=== PATIENT | male | born 1965 | race Caucasian/White ===

== ENCOUNTER 2016-10-17 12:59 | Emergency (ER) | payer SELFPAY ==
--- NOTE | 2016-10-17 13:37 | Emergency Department Record ---
History of Present Illness - General Chief Complaint: Back Pain/Injury Stated Complaint: BACK PAIN Time Seen by Provider: 10/17/16 13:01 Source: Patient Mode of Arrival: Ambulatory Limitations: No limitations - History of Present Illness Initial Comments: The patient is here due to multiple complaints. He got up this AM and went out to smoke and then noticed some chest discomfort. It was like a chest heaviness in the retrosternal region that was nonradiating. He denied any GENARO, SOB, upper back pain or sweating during the pain. The pain only lasted a few minutes and then resolved. He then noticed his legs feeling numb. He then walked inside and sat down and felt his legs go weak and very numb so he could not move them. The patient at this point felt like his legs were paralyzed and he layed down for about an hour unable to move. He did have mild low back pain at that time. Due to not being able to walk the patient called 911 and EMS arrived. They gave him 100mcg of Fentanyl for pain and then brought the patient here. During the transport time the patient states his leg numbness and weakness resolve and now they are back to normal. He has no hx of similar issues and no hx of any CP with exertion. The patient has cardiac risk factors of heavy tobacco use and a family hx of CAD. MD Complaint: Back pain, Other Onset/Timin -: Hour(s) Similar Symptoms Previously: No Place: Home Radiation: None Severity: Moderate Consistency: Now resolved Improves With: None Worsens With: None Context: Unknown Associated Symptoms: Denies other symptoms Treatment Prior to Arrival Comment:: Fentanyl 100 mcg per EMS - Related Data Previous Rx's Medication Instructions Recorded Cyclobenzaprine HCl [Flexeril] 10 mg PO TID PRN #20 tablet 10/17/16 Naproxen [Naprosyn] 500 mg PO BID #14 tablet. 10/17/16 Allergies Allergy/AdvReac Type Severity Reaction Status Date / Time No Known Drug Allergies Allergy Verified 10/17/16 13:12 Travel Screening - Travel/Exposure Within Last 30 Days Have you traveled within the last 30 days?: No - Travel/Exposure Within Last Year Have you traveled outside the [place] in the last year?: No - Additonal Travel Details Have you been exposed to anyone with a communicable illness?: No - Travel Symptoms Symptom Screening: None Review of Systems Constitutional: Denies: Chills, Fever Eyes: Denies: Eye discharge ENT: Denies: Congestion Respiratory: Denies: Cough, Dyspnea Past Medical History - SOCIAL HISTORY Smoking Status: Current every day smoker Alcohol Use: Occasional Drug Use: None - RESPIRATORY Hx Respiratory Disorders: No - CARDIOVASCULAR Hx Cardio Disorders: No - NEURO Hx Neuro Disorders: No - GI Hx GI Disorders: No - Hx Genitourinary Disorders: No - ENDOCRINE Hx Endocrine Disorders: No - MUSCULOSKELETAL Hx Musculoskeletal Disorders: No - PSYCH Hx Psych Problems: No - HEMATOLOGY/ONCOLOGY Hx Hematology/Oncology Disorders: No Family Medical History Any Significant Family History?: Yes Hx Heart Disease: Father, Mother, Brother/Sister, Grandparents Hx HTN: Father, Mother, Brother/Sister, Grandparents Physical Exam - General General Appearance: Alert, Oriented x3, Cooperative, No acute distress - Head Head exam: Atraumatic, Normocephalic, Normal inspection - Eye Eye exam: Normal appearance, PERRL - Neck Neck exam: Normal inspection, Full ROM. negative: Tenderness - Respiratory Respiratory exam: Normal lung sounds bilaterally. negative: Respiratory distress - Cardiovascular Cardiovascular Exam: Regular rate, Normal rhythm, Normal heart sounds - GI/Abdominal GI/Abdominal exam: Soft, Normal bowel sounds. negative: Tenderness - Extremities Extremities exam: Normal inspection, Full ROM, Normal capillary refill, Other ( Radial and DP pulses are 2+ and equal bilaterally.). negative: Tenderness - Back Back exam: Reports: Normal inspection, Full ROM. Denies: Muscle spasm, Rash noted, Tenderness - Neurological Neurological exam: Alert, Normal gait, Oriented X3, Reflexes normal (Patellar and achilles reflexes are 2+ bilaterally and equal.), Other (Neg SLR bilaterally.). negative: Abnormal gait, Motor sensory deficit (The motor and sensory exams are 5/5 and equal bilaterally in all muscle groups.) - Psychiatric Psychiatric exam: negative: Anxious, Depressed - Skin Skin exam: negative: Petechiae, Rash, Urticaria Course Vital Signs 10/17/16 13:13 Temperature 97.7 F Pulse Rate 56 L Respiratory 20 Rate Blood Pressure 103/59 Pulse Ox 94 L - Reevaluation(s) Reevaluation #1: The patient is doing very well at this time. He denies any leg numbness, weakness, or any bowel or bladder incontinence or retention. He just got up and walked to the bathroom with no difficulty and gave us a urine specimen. He states he is having very mild back pain now but it is nothing like earlier. 10/17/16 15:19 Reevaluation #2: The patient is doing well. He has had no further pain or discomfort in his chest and very minimal back pain. Due to the confusing nature of his symptoms I did recommend hospital admission to evaluate his heart further and to investigate the leg weakness further. The patient is reluctant to follow my advice and is refusing admission. I explained to him the risks of leaving are that he is to go home and have a heart attack, stroke, become disabled and even . He also could have the return of the leg weakness and it may not resolve this time and he could be paralyzed. The patient understands and accepts the risks. He understands we cannot be held liable for not figuring out his issues due to the fact he is refusing admission. The patient has proper decision making capacity and understands our instructions. 10/17/16 15:48 Medical Decision Making - Data Complexity MDM Data: Labs Ordered and/or Reviewed, X-Ray Ordered and/or Reviewed, EKG Ordered and/or Reviewed - Lab Data Result diagrams: 10/17/16 13:47 10/17/16 13:47 - EKG Data -: EKG Interpreted by Me EKG: No Acute Changes (NSR at 55. Biphasic T changes V4-6.) - Radiology Data Radiology results: Report reviewed (CXR: Neg LS SPine: No acute changes, mild DJD.) Disposition Disposition: Discharge Clinical Impression: Leg weakness, bilateral Chest pain Qualifiers: Chest pain type: unspecified Qualified Code(s): R07.9 - Chest pain, unspecified Disposition: Against Medical Advice Condition: (1) Good Instructions: Low Back Strain (ED) Additional Instructions: Please use the Naprosyn and Flexeril as directed. Please see a PCP later this week for further evaluation. Return to the ER for ANY return of your symptoms or if you change your mind about being evaluated further. Prescriptions: Cyclobenzaprine HCl [Flexeril] 10 mg PO TID PRN #20 tablet PRN Reason: Pain Naproxen [Naprosyn] 500 mg PO BID #14 tablet.dr Forms: Patient Portal Access Time of Disposition: 15:56 Quality - Quality Measures Quality Measures: N/A - Blood Pressure Screening View Details: Yes Blood Pressure Classification: Normal BP Reading Systolic Measurement: 103 Diastolic Measurement: 59 Screening for High Blood Pressure: < Normal BP, F/U Not Required > [G8783] Normal BP Follow-up Interventions: No follow-up required
[2016-10-17 13:55] LABS: HEMATOCRIT 46.2 % (42.0-52.0); HEMOGLOBIN 16.6 gm/dl (14.0-18.0); MEAN CELL VOLUME 88.2 fl (81-97); MEAN CORPUSCULAR HEMOGLOBIN 31.7 pg (27-33); MEAN CORPUSCULAR HGB CONC 35.9 g/dl (32-36); MEAN PLATELET VOLUME 10.4 fl (7.4-10.4); PLATELET COUNT 166 K/uL (130-400); RED BLOOD COUNT 5.24 M/uL (4.40-5.70); RED CELL DISTRIBUTION WIDTH 13.4 % (11.5-14.5); WHITE BLOOD COUNT W/O DIFF 16.2 K/uL (4.2-12.2)
[2016-10-17 14:06] LABS: ANION GAP 11.5 (7-16); BLOOD UREA NITROGEN 18 mg/dL (9-20); CARBON DIOXIDE 24.5 mmol/L (22-30); CREATINE PHOSPHOKINASE 72 U/L (55-170); CREATININE 1.1 mg/dL (0.66-1.25); EST GLOMERULAR FILTRATION RATE > 60 ml/min; GLUCOSE,RANDOM 98 mg/dL (70-110)
[2016-10-17 14:08] LABS: INR 0.98; PROTHROMBIN TIME (PATIENT) 10.6 SECONDS (9.5-12.1)
[2016-10-17 14:18] LABS: CKMB 1.6 ug/L (0-6)
[2016-10-17 14:19] LABS: TROPONIN I < 0.012 ng/mL (0.00-0.034)
[2016-10-17 15:21] LABS: URINE APPEARANCE CLEAR; URINE BILIRUBIN NEGATIVE (NEGATIVE); URINE BLOOD TRACE-I (NEGATIVE); URINE COLOR YELLOW; URINE GLUCOSE (UA) NEGATIVE (NEGATIVE); URINE KETONE NEGATIVE (NEGATIVE); URINE LEUKOCYTE ESTERASE NEGATIVE (NEGATIVE); URINE NITRITE NEGATIVE (NEGATIVE); URINE PROTEIN TRACE (NEGATIVE); URINE UROBILINOGEN 0.2 E.U./dL (0.20 - 1.00)
[2016-10-17] MEDS ORDERED: KETOROLAC 30 MG/ML VIAL IVP ONE (15:21)
[2016-10-17 15:30] LABS: URINE BACTERIA FEW; URINE HYALINE CAST 0-2 /lpf; URINE MUCUS HEAVY; URINE SQUAMOUS EPITHELIAL CELL 0 - 2 /hpf; URINE WBC 0 - 2 (0-2/hpf)
--- NOTE | 2016-10-18 09:51 | RADIOLOGY REPORT ---
EXAM: CHEST, TWO VIEWS HISTORY: DIFFICULTY BREATHING. TECHNIQUE: Frontal and lateral views of the chest were obtained. Comparison: None. FINDINGS: The heart size is normal. The lungs are clear. No pneumothorax. IMPRESSION: NEGATIVE CHEST EXAMINATION. JOB NUMBER: [id number] MTDD
--- NOTE | 2016-10-18 09:53 | RADIOLOGY REPORT ---
EXAM: LUMBAR SPINE HISTORY: BACK PAIN. TECHNIQUE: Frontal and lateral views of the lumbar spine were obtained. Comparison: None. FINDINGS: There are five non-rib bearing lumbar type vertebral bodies. Height and alignment is preserved. Minor end plate degenerative changes with osteophytic spurring at the L4-L5 and L5-S1 levels. The sacroiliac joints are preserved. IMPRESSION: MINOR DEGENERATIVE CHANGE, ABOVE. JOB NUMBER: [id number] MTDD
== END 2016-10-17 16:17 | disposition left against medical advice (07) ==
LOC: ER 12:59
DX: R29.898 Other symptoms and signs involving the musculoskeletal system (principal); R07.9 Chest pain, unspecified; M54.5 Low back pain; R06.00 Dyspnea, unspecified; F17.210 Nicotine dependence, cigarettes, uncomplicated
CPT/HCPCS: 99284 ×2; 96374; 82550; 85730; 85610; 86140; 82553; 84484; 80048; 81001; 85027; 71020; 72100; 93005; 93010; J1885

== ENCOUNTER 2017-03-20 17:54 | Emergency (ER) | payer MEDICAID ==
[2017-03-20] MEDS ORDERED: ONDANSETRON HCL IV 4 MG/2 ML VIAL IVP ONE (18:10)
[2017-03-20] MEDS ORDERED: MORPHINE SULFATE 5 MG/ML PFS IM ONE (18:10)
[2017-03-20] MEDS ORDERED: 0.9 % SODIUM CHLORIDE 1,000 ML BAG IV ONE (18:13)
--- NOTE | 2017-03-20 18:18 | Emergency Department Record ---
History of Present Illness - General Chief complaint: Flank Pain Stated complaint: FLANK PAIN Time Seen by Provider: 03/20/17 18:05 Source: Patient Mode of Arrival: Ambulatory Limitations: No limitations - History of Present Illness Initial comments: The patient is here due to developing R lower back pain over the last 5 hours. The pain is an aching pain that is worse with certain movements and bending. He denies any CP, SOB, or GENARO, and also has had no AP or dysuria. The patient denies any pain radiating down the legs or any leg weakness or numbness. The patient states the pain is similar to the pain he had this last summer when he was diagnosed with a Type A thoracic dissection. He was then treated at [facility] and the [facility] and had an ascending aorta patch placed. MD Complaint: Other Onset/Timin -: Hour(s) Location: Right flank Radiation: Back, R flank Quality: Aching Consistency: Constant Improves with: None Worsens with: None Reports: Nausea/vomiting - Related Data Allergies Allergy/AdvReac Type Severity Reaction Status Date / Time No Known Drug Allergies Allergy Verified 03/20/17 17:58 Travel Screening - Travel/Exposure Within Last 30 Days Have you traveled within the last 30 days?: No Review of Systems Constitutional: Denies: Chills, Fever Eyes: Denies: Eye discharge ENT: Denies: Congestion Respiratory: Denies: Cough, Dyspnea Cardiovascular: Denies: Arrhythmia, Chest pain Endocrine: Denies: Fatigue Past Medical History - SOCIAL HISTORY Smoking Status: Current every day smoker Alcohol Use: None Drug Use: None - RESPIRATORY Hx Respiratory Disorders: No - CARDIOVASCULAR Hx Cardio Disorders: No Hx Palpitations: No Comment:: aortic disection repair - NEURO Hx Neuro Disorders: No - GI Hx GI Disorders: No - Hx Genitourinary Disorders: No - ENDOCRINE Hx Endocrine Disorders: No - MUSCULOSKELETAL Hx Musculoskeletal Disorders: No - PSYCH Hx Psych Problems: No - HEMATOLOGY/ONCOLOGY Hx Hematology/Oncology Disorders: No Family Medical History Any Significant Family History?: Yes Hx Heart Disease: Father, Mother, Brother/Sister, Grandparents Hx HTN: Father, Mother, Brother/Sister, Grandparents Physical Exam - General General Appearance: Alert, Oriented x3, Cooperative, No acute distress - Head Head exam: Atraumatic, Normocephalic, Normal inspection - Eye Eye exam: Normal appearance, PERRL - ENT Throat exam: Normal inspection. negative: Tonsillar erythema, Tonsillar exudate - Neck Neck exam: Normal inspection, Full ROM. negative: Tenderness - Respiratory Respiratory exam: Normal lung sounds bilaterally. negative: Respiratory distress - Cardiovascular Cardiovascular Exam: Regular rate, Normal rhythm, Normal heart sounds. negative : Diastolic murmur, Systolic murmur - GI/Abdominal GI/Abdominal exam: Soft, Normal bowel sounds, Other (fem pulses are 2+ and equal bilaterally.). negative: Distended, Rigid, Tenderness - Extremities Extremities exam: Normal inspection, Full ROM, Normal capillary refill. negative: Tenderness - Back Back exam: Reports: Normal inspection, Full ROM, Paraspinal tenderness (The pain is reproducible to palpation over the R lower paraspinal muscle area. ). Denies: Muscle spasm, Rash noted, Tenderness, Vertebral tenderness - Neurological Neurological exam: Alert, Normal gait, Oriented X3. negative: Abnormal gait, Altered, Motor sensory deficit Course Vital Signs 03/20/17 17:59 Temperature 98.2 F Pulse Rate 62 Respiratory 20 Rate Blood Pressure 167/119 Pulse Ox 96 - Reevaluation(s) Reevaluation #1: The patient is doing better at this time. He states his R lower back pain is much improved and does not want any more pain medicines. He is still very anxious so we will treat him with a mg of Ativan. The repeat BP is 160/106. 03/20/17 18:39 Reevaluation #2: The patient is doing well at this time and resting comfortably. He has just had a chest and abd CT on 02/21/17 at [facility] and does say he was not told of any problems on the CT at his subsequent appointment. 03/20/17 18:50 Reevaluation #3: The patient is doing better. His repeat BP is 164/103. The patient states his normal BP is 150/90 since the surgery. The patient's care will be turned over to Dr. Linn at 19:00 due to shift change. 03/20/17 18:55 03/20/17 18:56 Medical Decision Making - Data Complexity MDM Data: EKG Ordered and/or Reviewed - Lab Data Result diagrams: 03/20/17 18:17 03/20/17 18:17 - EKG Data -: EKG Interpreted by Me EKG: Abnormal EKG (Biphasic T changes V4-6. Poss prolonged QT by computer read.) Disposition Forms: Patient Portal Access Quality - Quality Measures Quality Measures: N/A - Blood Pressure Screening View Details: Yes Does Patient Have Any of the Following: No, Active Dx of HTN Blood Pressure Classification: Hypertensive Reading Systolic Measurement: 167 Diastolic Measurement: 119 Screening for High Blood Pressure: Patient Exclusion, Hx of HTN [G9744]
[2017-03-20 18:25] LABS: BASO % 0.1 % (0-6); EOS % 0.7 % (0-6); GRAN % 63.2 % (47-80); HEMATOCRIT 40.5 % (42.0-52.0); HEMOGLOBIN 14.5 gm/dl (14.0-18.0); LYMPH % 27.7 % (16-45); MEAN CELL VOLUME 87.7 fl (81-97); MEAN CORPUSCULAR HEMOGLOBIN 31.4 pg (27-33); MEAN CORPUSCULAR HGB CONC 35.8 g/dl (32-36); MONO % 8.3 % (0-9); PLATELET COUNT 168 K/uL (130-400); RED BLOOD COUNT 4.62 M/uL (4.40-5.70); RED CELL DISTRIBUTION WIDTH 13.9 % (11.5-14.5)
[2017-03-20 18:26] LABS: URINE APPEARANCE CLEAR; URINE BILIRUBIN NEGATIVE (NEGATIVE); URINE BLOOD NEGATIVE (NEGATIVE); URINE COLOR YELLOW; URINE GLUCOSE (UA) NEGATIVE (NEGATIVE); URINE KETONE NEGATIVE (NEGATIVE); URINE LEUKOCYTE ESTERASE NEGATIVE (NEGATIVE); URINE NITRITE NEGATIVE (NEGATIVE); URINE PROTEIN NEGATIVE (NEGATIVE); URINE UROBILINOGEN 0.2 E.U./dL (0.20 - 1.00)
[2017-03-20 18:35] LABS: BLOOD UREA NITROGEN 21 mg/dL (6-20); CREATININE 0.8 mg/dL (0.7-1.2); EST GLOMERULAR FILTRATION RATE > 60 mL/min
[2017-03-20 18:36] LABS: INR 1.05; PARTIAL THROMBOPLASTIN TIME 26.3 SECONDS (24.5-39.1); PROTHROMBIN TIME (PATIENT) 11.4 SECONDS (9.5-12.1)
[2017-03-20] MEDS ORDERED: LORAZEPAM 2 MG/ML VIAL IV ONE (18:37)
[2017-03-20 18:38] LABS: GLUCOSE,RANDOM 87 mg/dL (74-109)
[2017-03-20 18:41] LABS: CREATINE PHOSPHOKINASE 78 U/L (39-308)
[2017-03-20 18:43] LABS: CKMB 2.6 ng/mL (<6.73)
--- NOTE | 2017-03-20 19:03 | Emergency Department Record ---
History of Present Illness - General Chief Complaint: Flank Pain Stated Complaint: FLANK PAIN Time Seen by Provider: 03/20/17 18:05 Source: Patient Mode of Arrival: Ambulatory Limitations: No limitations - History of Present Illness -: Hour(s) - Related Data Previous Rx's Medication Instructions Recorded Diazepam [Valium] 5 mg PO Q8H #20 tab 03/20/17 Hydrocodone/Acetaminophen [[place] 1 each PO Q6H #20 tablet 03/20/17 5-325 Tablet] Lisinopril 40 mg PO DAILY #30 tab 03/20/17 Allergies Allergy/AdvReac Type Severity Reaction Status Date / Time No Known Drug Allergies Allergy Verified 03/20/17 17:58 Travel Screening - Travel/Exposure Within Last 30 Days Have you traveled within the last 30 days?: No Review of Systems Constitutional: Denies: Chills, Fever Eyes: Denies: Eye discharge ENT: Denies: Congestion Respiratory: Denies: Cough, Dyspnea Cardiovascular: Denies: Arrhythmia, Chest pain Endocrine: Denies: Fatigue Past Medical History - SOCIAL HISTORY Smoking Status: Current every day smoker Alcohol Use: None Drug Use: None - RESPIRATORY Hx Respiratory Disorders: No - CARDIOVASCULAR Hx Cardio Disorders: No Hx Palpitations: No Comment:: aortic disection repair - NEURO Hx Neuro Disorders: No - GI Hx GI Disorders: No - Hx Genitourinary Disorders: No - ENDOCRINE Hx Endocrine Disorders: No - MUSCULOSKELETAL Hx Musculoskeletal Disorders: No - PSYCH Hx Psych Problems: No - HEMATOLOGY/ONCOLOGY Hx Hematology/Oncology Disorders: No Family Medical History Any Significant Family History?: Yes Hx Heart Disease: Father, Mother, Brother/Sister, Grandparents Hx HTN: Father, Mother, Brother/Sister, Grandparents Physical Exam - General Limitations: No limitations Course Vital Signs 03/20/17 03/20/17 03/20/17 17:59 18:35 18:54 Temperature 98.2 F Pulse Rate 62 Pulse Rate [ 60 60 Developmental Therapist ] Respiratory 20 20 Rate Blood Pressure 167/119 Blood Pressure 161/106 164/103 [Right Arm] Pulse Ox 96 96 - Reevaluation(s) Reevaluation #1: The case was signed out by Dr Willett The patient is in CT scan at this time The labs were reviewed The patient will be seen on return from CT 03/20/17 19:01 03/20/17 19:36 No changes on the EKG today from November 22 2016. The most recent provided by Siddhartha. 03/20/17 19:[address] report was reviewed. The CT is grossly unchanged from the 02/22/17 CT scan. There is a dissection from the great vessels to the L external iliac unchanged from the report. The SMA is involved as it was on the prior and unchanged. The left kidney is hypoperfused and again unchanged. There are no acute changes on the CT scan from the 02.22.17 CT scan. 03/20/17 19:[address] Angulo the patient's PCP regarding the ED visit, symptoms, CT and BP. He recommends increasing his Lisinopril to 40mg daily, come to the office for a nurse BP check, and see him next available office visit. Medical Decision Making - Lab Data Result diagrams: 03/20/17 18:17 03/20/17 18:17 Lab Results 03/20/17 03/20/17 03/20/17 Range/Units 18:17 18:17 18:17 WBC 7.0 (4.2-12.2) K/uL RBC 4.62 (4.40-5.70) M/uL Hgb 14.5 (14.0-18.0) gm/dl Hct 40.5 L (42.0-52.0) % MCV 87.7 (81-97) fl MCH 31.4 (27-33) pg MCHC 35.8 (32-36) g/dl RDW 13.9 (11.5-14.5) % Plt Count 168 (130-400) K/uL MPV 10.0 (7.4-10.4) fl Gran % 63.2 (47-80) % Lymphocytes % 27.7 (16-45) % Monocytes % 8.3 (0-9) % Eosinophils % 0.7 (0-6) % Basophils % 0.1 (0-6) % PT 11.4 (9.5-12.1) SECONDS INR 1.05 APTT 26.30 (24.5-39.1) SECONDS D-Dimer (0-0.59) mg/L FEU Sodium (136-145) mmol/L Potassium (3.4-4.5) mmol/L Chloride (98-107) mmol/L Carbon Dioxide (22-29) mmol/L Anion Gap (7-16) BUN (6-20) mg/dL Creatinine (0.7-1.2) mg/dL Estimated GFR mL/min Random Glucose (74-109) mg/dL Calcium (8.6-10.0) mg/dL Creatine Kinase (39-308) U/L CK-MB (CK-2) (<6.73) ng/mL Troponin T (0-0.010) ng/mL Urine Color Yellow Urine Appearance Clear Urine pH 6.5 (5.0-8.0) Ur Specific [place] 1.025 (1.002-1.030) Urine Protein Negative (NEGATIVE) Urine Glucose (UA) Negative (NEGATIVE) Urine Ketones Negative (NEGATIVE) Urine Blood Negative (NEGATIVE) Urine Nitrite Negative (NEGATIVE) Urine Bilirubin Negative (NEGATIVE) Urine Urobilinogen 0.2 (0.20 - 1.00) E.U./dL Ur Leukocyte Esterase Negative (NEGATIVE) 03/20/17 03/20/17 Range/Units 18:17 18:17 WBC (4.2-12.2) K/uL RBC (4.40-5.70) M/uL Hgb (14.0-18.0) gm/dl Hct (42.0-52.0) % MCV (81-97) fl MCH (27-33) pg MCHC (32-36) g/dl RDW (11.5-14.5) % Plt Count (130-400) K/uL MPV (7.4-10.4) fl Gran % (47-80) % Lymphocytes % (16-45) % Monocytes % (0-9) % Eosinophils % (0-6) % Basophils % (0-6) % PT (9.5-12.1) SECONDS INR APTT (24.5-39.1) SECONDS D-Dimer 1.25 H (0-0.59) mg/L FEU Sodium 138 (136-145) mmol/L Potassium 4.0 (3.4-4.5) mmol/L Chloride 101 (98-107) mmol/L Carbon Dioxide 25.0 (22-29) mmol/L Anion Gap 12.0 (7-16) BUN 21 H (6-20) mg/dL Creatinine 0.8 (0.7-1.2) mg/dL Estimated GFR > 60 mL/min Random Glucose 87 (74-109) mg/dL Calcium 9.2 (8.6-10.0) mg/dL Creatine Kinase 78 (39-308) U/L CK-MB (CK-2) 2.6 (<6.73) ng/mL Troponin T < 0.010 (0-0.010) ng/mL Urine Color Urine Appearance Urine pH (5.0-8.0) Ur Specific [place] (1.002-1.030) Urine Protein (NEGATIVE) Urine Glucose (UA) (NEGATIVE) Urine Ketones (NEGATIVE) Urine Blood (NEGATIVE) Urine Nitrite (NEGATIVE) Urine Bilirubin (NEGATIVE) Urine Urobilinogen (0.20 - 1.00) E.U./dL Ur Leukocyte Esterase (NEGATIVE) Disposition Disposition: Discharge Clinical Impression: Flank pain Disposition: Home, Self-Care Condition: (1) Good Instructions: Flank Pain (ED) Additional Instructions: Increase your Lisinopril to 40mg daily up from 20mg daily Return if you have any uncontrolled pain, return of pain or any new concerns Return to the [facility] clinic this week for a blood pressure check and to schedule your recheck with Dr Coronel Prescriptions: Diazepam [Valium] 5 mg PO Q8H #20 tab Hydrocodone/Acetaminophen [[place] 5-325 Tablet] 1 each PO Q6H #20 tablet Lisinopril 40 mg PO DAILY #30 tab Forms: Patient Portal Access Time of Disposition: 19:54 Quality - Quality Measures Quality Measures: N/A - Blood Pressure Screening Does Patient Have Any of the Following: No Blood Pressure Classification: Hypertensive Reading Systolic Measurement: 167 Diastolic Measurement: 119 Screening for High Blood Pressure: < Pre-Hypertensive BP, F/U Documented > [ G8950] Pre-Hypertensive Follow-up Interventions: Referral to alternative/primary care provider.
[2017-03-20] MEDS ORDERED: MORPHINE SULFATE 5 MG/ML PFS IVP ONE (19:32)
[2017-03-20] MEDS ORDERED: HYDROCODONE/APAP 5/325MG TABLET PO ONE (19:55)
[2017-03-20] MEDS ORDERED: DIAZEPAM 5 MG TABLET PO ONE (19:55)
[2017-03-20] MEDS ORDERED: CLONIDINE HCL 0.1 MG TABLET PO ONE (20:10)
[2017-03-20] MEDS ORDERED: HYDRALAZINE 20MG/ML VIAL IV ONE (20:11)
--- NOTE | 2017-03-21 08:33 | CT ANGIOGRAM REPORT ---
EXAM: CTA OF THE CHEST, ABDOMEN AND PELVIS HISTORY: ABDOMINAL PAIN AND CHEST PAIN. TECHNIQUE: CTA of the chest, abdomen and pelvis was performed following IV administration of 100 ml of Omnipaque 350 contrast. Axial images were obtained with coronal and sagittal MIP reconstructions. 3D volume reformatted images were obtained on a dedicated workstation. Comparison: Prior CTA of the chest from 10/19/16. Prior CTA report dated . FINDINGS: CTA OF THE CHEST: The visualized thyroid gland enhances normally. Post surgical changes of the mediastinum are noted. Redemonstrated is a Type A dissection of the aorta, with the visible intimal flap also extending to and involving the origins of the great vessels. The intimal flap also extends to and involves the descending thoracic aorta. No periaortic fluid collection. There is suboptimal opacification of the pulmonary arterial tree. No mediastinal or hilar adenopathy. Nonenlarged mediastinal nodes are present. The osseous structures are grossly intact. The visualized airways are patent. The lungs are clear. CTA OF THE ABDOMEN AND PELVIS: Evaluation of solid visceral organs limited due to phase of contrast. As visualized, the liver, spleen, adrenal glands, and pancreas are unremarkable. The gallbladder is present. The right kidney is unremarkable. There is a partially exophytic left renal cyst measuring 4.2 x 4.0 cm. In addition there is a hypodense appearance to the left kidney with left perinephric inflammatory changes. Findings are likely secondary to the left kidney being supplied by the false lumen of the previously described thoracic aortic dissection which extends to and involves the abdominal aorta as well. The celiac access and superior mesenteric arteries as well as the right renal artery are supplied by the true lumen which is significantly smaller than the false lumen. The dissection also extends to the common iliac arteries bilaterally with further extension to the left external iliac artery. The extension does not extend distal to the external iliac arteries with the common femoral arteries appearing unremarkable bilaterally. IMPRESSION: THERE APPEARS TO BE A GROSSLY STABLE APPEARANCE TO THE THORACIC AND ABDOMINAL AORTIC DISSECTION, DETAILED ABOVE. SIMILAR FINDINGS WERE DESCRIBED ON THE OUTSIDE CTA REPORT DATED 02/22/17. CORRELATION WITH PRIOR IMAGING MAY BE OF BENEFIT. THE PATIENT IS STATUS POST REPAIR OF THE TYPE A DISSECTION. NOT STATED PREVIOUSLY, INTIMAL FLAP ALSO EXTENDS TO THE ORIGINS OF THE GREAT VESSELS WELL THE SUPERIOR MESENTERIC ARTERY. THE LEFT RENAL ARTERY IS SUPPLIED BY THE FALSE LUMEN WITH HYPODENSE APPEARANCE TO THE LEFT KIDNEY LIKELY SECONDARY TO DIMINISHED PERFUSION. THIS WAS ALSO DESCRIBED PREVIOUSLY. JOB NUMBER: [id number] MTDD
== END 2017-03-20 21:19 | disposition home or self-care (01) ==
LOC: ER 17:54
DX: M54.5 Low back pain (principal); R11.2 Nausea with vomiting, unspecified; I10 Essential (primary) hypertension; F17.210 Nicotine dependence, cigarettes, uncomplicated
CPT/HCPCS: 99284 ×2; 96374; 96372; 96375; 82550; 85025; 85730; 85610; 82553; 80048; 81003; 84484; 85379; 71275; 74174; 93005; 93010; Q9967; J3490; J2405; J2060; J2270; J7030

== ENCOUNTER 2017-03-22 21:08 | Emergency (ER) | payer MEDICAID ==
--- NOTE | 2017-03-22 21:36 | Emergency Department Record ---
History of Present Illness - General Chief Complaint: Hypertension Stated Complaint: HTN/HX OF AORTIC DISECTION IN OCTOBER Time Seen by Provider: 03/22/17 21:23 Source: Patient Mode of Arrival: Ambulatory - History of Present Illness Initial Comments: The patient checked his blood pressure tonight and found it elevated above its normal parameters, but he had no cp, phoebe, headache, vision changes, or any other new symptoms. 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 He also was seen here 03-20-17. complaining of right flank pain, and received a CT of chest and abdomen to check his aorta status. This report was unchanged from prior and normal. He was given something for back pain and discharged. Today he took his pain meds forhis right low back which he states helped, and that pain is controlled. He is due to take his 10 p.m. labetolol pill still. Onset/Timin -: Minutes(s) History of Same: Yes History of Trauma: No Associated Symptoms: Denies other symptoms - Related Data Previous Rx's Medication Instructions Recorded Diazepam [Valium] 5 mg PO Q8H #20 tab 03/20/17 Hydrocodone/Acetaminophen [[place] 1 each PO Q6H #20 tablet 03/20/17 5-325 Tablet] Lisinopril 40 mg PO DAILY #30 tab 03/20/17 Allergies Allergy/AdvReac Type Severity Reaction Status Date / Time No Known Drug Allergies Allergy Verified 03/20/17 17:58 Travel Screening - Travel/Exposure Within Last 30 Days Have you traveled within the last 30 days?: No - Travel Symptoms Symptom Screening: None Review of Systems Reviewed: No additional complaints except as noted below Constitutional: Reports: As per HPI. Denies: Chills, Fever, Malaise, Night sweats, Weakness, Weight change Eyes: Reports: As per HPI. Denies: Eye discharge, Eye pain, Photophobia, Vision change ENT: Reports: As per HPI. Denies: Congestion, Dental pain, Ear pain, Epistaxis , Hearing loss, Throat pain Respiratory: Reports: As per HPI. Denies: Cough, Dyspnea, Hemoptysis, Stridor, Wheezes Cardiovascular: Reports: As per HPI. Denies: Arrhythmia, Chest pain, Dyspnea on exertion, Edema, Murmurs, Orthopnea, Palpitations, Paroxysmal nocturnal dyspnea, Rheumatic Fever, Syncope Endocrine: Reports: As per HPI. Denies: Fatigue, Heat or cold intolerance, Polydipsia, Polyuria Gastrointestinal: Reports: As per HPI. Denies: Abdominal pain, Constipation, Diarrhea, Hematemesis, Hematochezia, Melena, Nausea, Vomiting Genitourinary: Reports: As per HPI. Denies: Dysuria, Frequency, Hematuria, Incontinence, Retention, Testicular pain, Testicular mass, Urgency Musculoskeletal: Reports: As per HPI. Denies: Arthralgia, Back pain, Gout, Joint swelling, Myalgia, Neck pain Skin: Reports: As per HPI. Denies: Bruising, Change in color, Change in hair/ nails, Lesions, Pruritus, Rash Neurological: Reports: As per HPI. Denies: Abnormal gait, Confusion, Headache, Numbness, Paresthesias, Seizure, Tingling, Tremors, Vertigo, Weakness Psychiatric: Reports: As per HPI. Denies: Anxiety, Auditory hallucinations, Depression, Homicidal thoughts, Suicidal thoughts, Visual hallucinations Hematological/Lymphatic: Reports: As per HPI. Denies: Anemia, Blood Clots, Easy bleeding, Easy bruising, Swollen glands Past Medical History - SOCIAL HISTORY Smoking Status: Current every day smoker - RESPIRATORY Hx Respiratory Disorders: No - CARDIOVASCULAR Hx Cardio Disorders: Yes Hx Hypertension: Yes Hx Palpitations: No Comment:: aortic disection repair - NEURO Hx Neuro Disorders: No - GI Hx GI Disorders: No - Hx Genitourinary Disorders: No - ENDOCRINE Hx Endocrine Disorders: No - MUSCULOSKELETAL Hx Musculoskeletal Disorders: No - PSYCH Hx Psych Problems: No - HEMATOLOGY/ONCOLOGY Hx Hematology/Oncology Disorders: No Family Medical History Any Significant Family History?: Yes Hx Heart Disease: Father, Mother, Brother/Sister, Grandparents Hx HTN: Father, Mother, Brother/Sister, Grandparents Physical Exam - General General Appearance: Alert, Oriented x3, Cooperative, No acute distress - Head Head exam: Normal inspection - Eye Eye exam: Normal appearance, PERRL Pupils: Normal accommodation - ENT ENT exam: Normal exam, Mucous membranes moist, Normal external ear exam, Normal orophraynx, TM's normal bilaterally Ear exam: Normal external inspection. negative: External canal tenderness Nasal Exam: Normal inspection. negative: Discharge, Sinus tenderness Mouth exam: Normal external inspection, Tongue normal Teeth exam: Normal inspection. negative: Dental caries Throat exam: Normal inspection. negative: Tonsillar erythema, Tonsillar exudate - Neck Neck exam: Normal inspection, Full ROM. negative: Tenderness - Respiratory Respiratory exam: Normal lung sounds bilaterally, Other (chest wall pink surgical sternotomy scar well healed). negative: Respiratory distress - Cardiovascular Cardiovascular Exam: Regular rate, Normal rhythm, Normal heart sounds - GI/Abdominal GI/Abdominal exam: Soft, Normal bowel sounds. negative: Tenderness - Rectal Rectal exam: Deferred - exam: Deferred - Extremities Extremities exam: Normal inspection, Full ROM, Normal capillary refill. negative: Tenderness - Back Back exam: Reports: Normal inspection, Full ROM. Denies: Muscle spasm, Rash noted, Tenderness - Neurological Neurological exam: Alert, Normal gait, Oriented X3, Reflexes normal - Psychiatric Psychiatric exam: Normal affect, Normal mood - Skin Skin exam: Dry, Intact, Normal color, Warm Course Vital Signs 03/22/17 21:13 Temperature 97.9 F Pulse Rate 60 Respiratory 24 Rate Blood Pressure 144/113 Pulse Ox 98 - Reevaluation(s) Reevaluation #1: Blood pressure here on arrival was 144/113. Patient took his labetalol pill under my instruction while at bedside. He continues to have no symptoms. He appears very slightly anxious. 03/22/17 21:45 03/22/17 21:49 Reevaluation #2: Discussed importance of continued BP monitoring and follow up with PCP. Patient is requesting a canoe builder in this town so he doesn't have to drive so far. All questions answered. Ready for DC home. 03/23/17 00:42 Medical Decision Making - Management Options MDM Management: No Additional Work-up Planned Disposition Disposition: Discharge Clinical Impression: Chronic hypertension not affecting current episode of care Disposition: Home, Self-Care Condition: (1) Good Instructions: Hypertension (ED) Additional Instructions: Continue present care. Continue present meds. Continue to monitor and record BP and follow with PCP. Follow up with PCP as needed. Cardiology referral from [facility] as requested by patient. Follow up with [facility] as previously instructed. Referrals: MARY GIBSON D.O. [DOCTOR OF OSTEOPATH] - Forms: Patient Portal Access Quality - Quality Measures Quality Measures: N/A - Blood Pressure Screening Does Patient Have Any of the Following: No, Active Dx of HTN Blood Pressure Classification: Hypertensive Reading Systolic Measurement: 144 Diastolic Measurement: 113 Screening for High Blood Pressure: Patient Exclusion, Hx of HTN [[id number]]
== END 2017-03-22 23:05 | disposition home or self-care (01) ==
LOC: ER 21:08
DX: I10 Essential (primary) hypertension (principal); M54.5 Low back pain; F17.210 Nicotine dependence, cigarettes, uncomplicated
CPT/HCPCS: 99283

== ENCOUNTER 2019-05-03 08:32 | Day surgery (SDC) | payer BC ==
[2019-05-03] MEDS ORDERED: PROPOFOL 10 MG/ML VIAL IV ONE (08:33)
[2019-05-03] MEDS ORDERED: LIDOCAINE 2% MDV (20MG/ML) 20ML VIAL IV ONE (08:33)
[2019-05-03 10:03] LABS: PROSTATE SPECIFIC ANTIGEN SCR 1.65 ng/mL (0.0-3.1)
[2019-05-03 10:18] LABS: ALB/GLOB RATIO 2.1 (1.1-1.8); ALBUMIN 4.4 g/dL (4.0-5.0); ALKALINE PHOSPHATASE 64 U/L (40-129); ALT/SGPT 13 U/L (<41); AST/SGOT 13 U/L (10.0-50.0); BLOOD UREA NITROGEN 12 mg/dL (6-20); CREATININE 0.9 mg/dL (0.7-1.2); EST GLOMERULAR FILTRATION RATE > 60 mL/min; GLUCOSE,RANDOM 93 mg/dL (74-109); TOTAL PROTEIN 6.5 g/dL (6.6-8.7)
--- NOTE | 2019-05-06 14:10 | Operative Note ---
SURGEON: J Carlos Dorsey MD OPERATION: COLONOSCOPY. INDICATIONS: This is a 53-year-old male with average risk for colorectal cancer who presented for screening colonoscopy. POSTOPERATIVE DIAGNOSES: 1. Two 5 mm sessile polyp in the descending colon that were removed by cold snare. 2. A 6 mm sessile polyp in the sigmoid colon that was removed by cold snare. 3. A large pedunculated 1.2 cm rectal polyp that was removed by snare cautery. 4. Grade 1 internal hemorrhoids. ANESTHESIA: Sedation is per Anesthesia. Pulse oximetry was monitored throughout the procedure to maintain O2 saturation of 90% or greater. Supplemental oxygen was administered via nasal cannula. Cardiac and vital signs were monitored throughout the duration of the procedure, and they were stable. The procedure of colonoscopy and risks and alternatives of the procedure, including the risk of bleeding and perforation, among others, were explained to the patient who voiced understanding and agreed to have the procedure done. Physical examination was performed, and the patient was found stable for sedation. PROCEDURE: The patient was placed in the left lateral position. Sedation was initiated. A digital rectal exam was performed and showed some mild external hemorrhoids with no palpable rectal masses. An Olympus PCF-180AL colonoscope was then inserted into the rectum under direct visualization. It was advanced to the cecum without difficulty. The ileocecal valve and appendiceal orifice were identified and photographed. The colonic mucosa was carefully examined upon introduction of the colonoscope. In the rectum was a large 1.2 cm pedunculated polyp that was noted. There were no other lesions noted. The colonoscope was then withdrawn while carefully examining the colonic mucosal surfaces. The cecum, ascending colon, and transverse colon mucosa appeared normal. In the descending colon were two 5 mm sessile polyps that were noted and they were removed by cold snare. The colonoscope was then withdrawn farther into the sigmoid colon and a 5 mm sessile polyp was noted and was removed by cold snare. In the rectum, the 1.2 cm pedunculated polyp was noted and was removed by snare cautery. The colonoscope was then withdrawn into the rectum and retroflexion was performed. There were no other lesions noted. The colonoscope was then withdrawn and the procedure was terminated. The patient tolerated the procedure well without any immediate complications. The patient remained with stable vital signs and was transferred to the recovery room. RECOMMENDATIONS: 1. The patient should be on a low-residue diet for the next 2 weeks and thereafter should be on a high-fiber diet. 2. The patient is to have a repeat colonoscopy for surveillance in 3 years. Thank you for allowing me to participate in the care of your patient. MARIPOSA
== END 2019-05-03 11:20 | disposition home or self-care (01) ==
LOC: HOP 08:32
PROVIDERS: ATTEND Internal Medicine Gastroenterology
DX: Z12.11 Encounter for screening for malignant neoplasm of colon (principal); D12.4 Benign neoplasm of descending colon; D12.8 Benign neoplasm of rectum; K63.5 Polyp of colon; Z12.5 Encounter for screening for malignant neoplasm of prostate; K64.9 Unspecified hemorrhoids; I10 Essential (primary) hypertension; E78.00 Pure hypercholesterolemia, unspecified; F17.210 Nicotine dependence, cigarettes, uncomplicated
CPT/HCPCS: 80053; G0103